=== PATIENT | female | born 1975 | race Two or more races ===

== ENCOUNTER 2018-11-04 08:45 | Inpatient (IN) | payer OTHER ==
[~2018-11-04] VITALS: Ht 157.5 cm; Wt 90.7 kg
[2018-11-04] MEDS ORDERED: BREO ELLIPTA 21 EACH IH (10:09)
[2018-11-04] MEDS ORDERED: PREDISONE PO (10:10)
[2018-11-04] MEDS ORDERED: SINGULAIR10 MG PO (10:10)
[2018-11-07] MEDS ORDERED: PREDNISONE10 MG PO (10:10)
[2018-11-07] MEDS ORDERED: PREDNISONE2.5 MG PO (10:10)
[2018-11-10] MEDS ORDERED: NAPR500T14 PO (10:38)
[2018-11-10] MEDS ORDERED: CODE1TAB37 PO (10:38)
== END 2018-11-10 12:21 | DRG 743 ==
LOC: OB/GYN 11-07 05:45 → O/R 11-07 05:45 → SURH 11-07 07:00 → OB/GYN 11-07 11:26
PROVIDERS: ADMIT Obstetrics & Gynecology
PROC: 0TJB8ZZ Inspection of Bladder, Via Natural or Artificial Opening Endoscopic (ICD-10-PCS; 2018-11-07)
PROC: 3E0F7GC Introduction of Other Therapeutic Substance into Respiratory Tract, Via Natural or Artificial Opening (ICD-10-PCS; 2018-11-07)
PROC: 0UT90ZZ Resection of Uterus, Open Approach (ICD-10-PCS; principal; 2018-11-07 07:00)
PROC: 0WQF0ZZ Repair Abdominal Wall, Open Approach (ICD-10-PCS; 2018-11-07 07:00)
DX: D25.1 Intramural leiomyoma of uterus (principal); N80.0 Endometriosis of uterus; N73.6 Female pelvic peritoneal adhesions (postinfective); K43.9 Ventral hernia without obstruction or gangrene

== ENCOUNTER 2023-11-26 06:48 | Day surgery (SDC) | payer OTHER ==
[~2023-11-26 06:48] MED LIST: BREO ELLIPTA 21 EACH IH; CODE1TAB37 PO; COZAAR25 MG; NAPR500T14 PO; PREDISONE PO; PREDNISONE10 MG PO; PREDNISONE2.5 MG PO; SINGULAIR10 MG PO
[2023-11-26] MEDS ORDERED: LIDOCAINE HCL 1%/EPINEPHRINE 20ML VIAL IJ ONE (12:15)
[2023-11-26] MEDS ORDERED: BUPIVACAINE HCL 30 ML VIAL IJ ONE (12:15)
[2023-11-26] MEDS ORDERED: CEFAZOLIN SODIUM 1,000 MG VIAL IV ONE (12:15)
[2023-11-26] MEDS ORDERED: EPINEPHRINE HCL/PF 1 MG/ML AMPUL IR ONE (12:15)
== END 2023-11-26 20:05 | disposition home or self-care (01) ==
LOC: CIR.AMB 06:48
PROVIDERS: ATTEND Orthopaedic Surgery
DX: M23.231 Derangement of other medial meniscus due to old tear or injury, right knee (principal); M17.11 Unilateral primary osteoarthritis, right knee; M65.861 Other synovitis and tenosynovitis, right lower leg; Z91.013 Allergy to seafood

== ENCOUNTER 2023-12-12 15:31 | Outpatient (CLI) | payer OTHER ==
[2023-12-12 16:04] LABS: HEMATOCRIT 40.6 % (36.0-45.00); HEMOGLOBIN 13.9 g/dL (12.0-15.00); MEAN CELL VOLUME 90.4 fL (80.00-100.00); MEAN CORPUSCULAR HEMOGLOBIN 31.1 pg (27.00-32.0); MEAN CORPUSCULAR HGB CONC 34.4 g/dl (32.0-36.0); PLATELET COUNT 291 K/uL (150-450); RED BLOOD COUNT 4.49 M/uL (4.00-6.00); RED CELL DISTRIBUTION WIDTH 13.2 % (11.5-14.5)
[2023-12-12 16:06] LABS: SYNOVIAL FLUID APPEARANCE TURBID; SYNOVIAL FLUID COLOR RED-BLOODY
[2023-12-12 17:38] LABS: ERYTHROCYTE SEDIMENTATION RATE 4 mm/hr; MONONUCLEAR 90 %; POLYMORPHONUCLEAR 10 %
== END 2023-12-12 15:45 | disposition home or self-care (01) ==
LOC: LAB 15:31
PROVIDERS: ATTEND Orthopaedic Surgery
DX: D64.9 Anemia, unspecified (principal); M06.4 Inflammatory polyarthropathy; M25.40 Effusion, unspecified joint

== ENCOUNTER → 2024-10-06 11:55 | Outpatient (CLI) | payer OTHER | END | disposition home or self-care (01) | LOC: SONOGRAMA 11:55 | PROVIDERS: ATTEND Physical Medicine & Rehabilitation | DX: M76.51 Patellar tendinitis, right knee (principal) ==